=== PATIENT | female | born 1970 | race Caucasian/White ===

== ENCOUNTER 2017-09-28 13:06 | Emergency (ER) | END 2017-09-28 15:49 | disposition home or self-care (01) ==

== ENCOUNTER 2018-11-27 07:36 | Emergency (ER) | payer SELFPAY ==
[~2018-11-27] VITALS: Ht 157.5 cm; Wt 91.8 kg
[~2018-11-27 07:36] MED LIST: FLUT9.9S NASAL; PRED20TA PO
[2018-11-27 07:37] VITALS: Ht 157.5 cm; Wt 91.8 kg
[2018-11-27] MEDS ORDERED: FAMOTIDINE 20 MG INJ IV STA (08:14)
[2018-11-27] MEDS ORDERED: LIDOCAINE/MYLANTA 40 ML BTL PO STA (08:14)
[2018-11-27] MEDS ORDERED: SOD CHLORIDE 0.9% 500 ML IV STA (08:14)
[2018-11-27] MEDS ORDERED: ONDANSETRON 4 MG INJ IV STA (08:14)
[2018-11-27] MEDS ORDERED: DICYCLOMINE 20 MG INJ IM ONE (08:30)
[2018-11-27] MEDS ORDERED: LEVO200T45 PO (09:36)
[2018-11-27] MEDS ORDERED: ASPI81TA52 PO (09:36)
[2018-11-27] MEDS ORDERED: FER325 PO (09:37)
[2018-11-27 10:01] VITALS: BP 145/82; PULSE 66; RESP 17
[2018-11-27] MEDS ORDERED: DICY10CA40 PO (10:13)
--- NOTE | 2018-11-27 10:18 | ERD ---
ER Documentation Chief Complaint Chief Complaint generalized abdominal pain and nausea since 1 am today HPI This is a very pleasant 48-year-old female who presents to the emergency room with less than 12 hours of cramping epigastric abdominal discomfort. Patient describes cramping intermittent abdominal discomfort. Nonradiating. No fevers or chills. Mild nausea but no vomiting. She denies any diarrhea or significant constipation. No fevers or chills chest pain or shortness of breath or cough. ROS All systems reviewed and are negative except as per history of present illness. Medications Home Meds Active Scripts Dicyclomine HCl (Dicyclomine HCl) 10 Mg Capsule, 10 MG PO TID PRN for ABDOMINAL CRAMPING, #20 CAP Prov:TIFFANIE GOLDMAN MD 11/27/18 Reported Medications Ferrous Sulfate* (Ferrous Sulfate*) 325 Mg Tabec, 325 MG PO DAILY, TAB 11/27/18 Aspirin (Low Dose Aspirin) 81 Mg Tablet.dr, 81 MG PO DAILY, #30 TAB 11/27/18 Levothyroxine Sodium* (Levoxyl*) 200 Mcg Tablet, 200 MCG PO BEFORE BREAKFAST, # 30 TAB 11/27/18 Discontinued Scripts Fluticasone Propionate (Flonase Allergy Relief) 9.9 Ml [place].susp, 1 SPRAY NASAL BID, #1 BOTTLE TO EACH NOSTRIL Prov:JENNIFER NELSON MD 09/28/17 Prednisone* (Prednisone*) 20 Mg Tab, 20 MG PO DAILY for 5 Days, TAB Prov:JENNIFER NELSON MD 09/28/17 Allergies Allergies: Coded Allergies: Sulfa (Sulfonamide Antibiotics) (Verified Allergy, Unknown, 11/27/18) PMhx/Soc History of Surgery: No Anesthesia Reaction: No Hx Neurological Disorder: No Hx Respiratory Disorders: No Hx Cardiac Disorders: No Hx Psychiatric Problems: No Hx Miscellaneous Medical Probl: Yes (Lupus) Hx Alcohol Use: No Hx Substance Use: No Hx Tobacco Use: No Smoking Status: Never smoker FmHx Family History: No diabetes Physical Exam Vitals Vital Signs Date Temp Pulse Resp B/P (MAP) Pulse Ox O2 O2 Flow FiO2 Time Delivery Rate 11/27/18 97.9 66 17 145/82 100 Room Air 10:01 (103) 11/27/18 97.0 102 19 161/96 97 07:37 (117) Physical Exam General: Well developed, well nourished, no acute distress Head: Normocephalic, atraumatic. Eyes: Pupils equally reactive, EOM intact ENT: Moist mucous membranes Neck: Supple, no lymphadenopathy Respiratory: Lungs clear bilaterally, no distress Cardiovascular: RRR, no murmurs, rubs, or gallops Abdominal: Soft, very mild nonspecific epigastric abdominal tenderness without rebound or guarding, negative Jones sign, no tenderness to McBurney's point. : Deferred MSK: No edema, no unilateral swelling, 5/5 strength Neurologic: Alert and oriented, moving all extremities, normal speech, no focal weakness, no cerebellar signs Skin: No rash Psych: Normal mood Result Diagram: 11/27/18 0849 11/27/18 0849 Results 24 hrs Laboratory Tests Test 11/27/18 08:27 11/27/18 08:49 Serum HCG, Qualitative NEGATIVE White Blood Count 11.7 10^3/ul Red Blood Count 4.72 10^6/ul Hemoglobin 13.8 g/dl Hematocrit 40.0 % Mean Corpuscular Volume 84.7 fl Mean Corpuscular Hemoglobin 29.2 pg Mean Corpuscular Hemoglobin Concent 34.5 g/dl Red Cell Distribution Width 12.0 % Platelet Count 377 10^3/UL Mean Platelet Volume 9.6 fl Immature Granulocytes % 0.300 % Neutrophils % 82.5 % Lymphocytes % 11.0 % Monocytes % 4.4 % Eosinophils % 1.4 % Basophils % 0.4 % Nucleated Red Blood Cells % 0.0 /100WBC Immature Granulocytes # 0.040 10^3/ul Neutrophils # 9.6 10^3/ul Lymphocytes # 1.3 10^3/ul Monocytes # 0.5 10^3/ul Eosinophils # 0.2 10^3/ul Basophils # 0.1 10^3/ul Nucleated Red Blood Cells # 0.0 10^3/ul Sodium Level 141 mmol/L Potassium Level 3.8 mmol/L Chloride Level 106 mmol/L Carbon Dioxide Level 22 mmol/L Anion Gap 13 Blood Urea Nitrogen 15 mg/dl Creatinine 0.53 mg/dl Est Glomerular Filtrat Rate mL/min > 60 mL/min Glucose Level 113 mg/dl Calcium Level 10.1 mg/dl Total Bilirubin 0.5 mg/dl Direct Bilirubin 0.00 mg/dl Indirect Bilirubin 0.5 mg/dl Aspartate Amino Transf (AST/SGOT) 29 IU/L Alanine Aminotransferase (ALT/SGPT) 17 IU/L Alkaline Phosphatase 98 IU/L Troponin I < 0.012 ng/ml Total Protein 8.2 g/dl Albumin 4.6 g/dl Globulin 3.60 g/dl Albumin/Globulin Ratio 1.27 Lipase 68 U/L Current Medications Medications Dose Sig/Roderick Start Time Status Last (Trade) Ordered Route PRN Stop Time Admin Dose Reason Admin Sodium 500 ml @ Q1H STAT 11/27/18 DC 11/27/18 Chloride 500 mls/hr IV 08:14 11/27/18 08:45 09:13 Ondansetron 4 mg ONCE STAT 11/27/18 DC 11/27/18 HCl (Zofran IV 08:14 11/27/18 08:39 Inj) 08:16 Famotidine 20 mg ONCE STAT 11/27/18 DC 11/27/18 (Pepcid Iv) IV 08:14 11/27/18 08:39 08:16 40 ml ONCE STAT 11/27/18 DC 11/27/18 Miscellaneous PO 08:14 11/27/18 08:39 Medication 08:16 (Gi Cocktail (2)) Dicyclomine 10 mg ONCE ONCE 11/27/18 DC 11/27/18 HCl IM 08:30 11/27/18 08:40 (Bentyl) 08:31 Procedures/MDM EKG, MONITORS, & DIAGNOSTIC IMAGING: Gallbladder ultrasound, no acute process per radiologist read EKG: I reviewed and interpreted a 12-lead EKG. Rhythm: Normal sinus rhythm ST Changes: No contiguous ST segment elevations T waves: No contiguous T wave inversions Impression: No evidence of acute cardiac ischemia LAB INTERPRETATION: I reviewed the laboratory testing and it shows no evidence of acute process MEDICAL DECISION MAKING: The patient presents with nonspecific epigastric abdominal cramping. Very low pretest probability for cardiac etiology given no reproducible symptoms and better alternative diagnosis. EKG and troponin are negative. Patient has no m igratory pain suggestive of appendicitis or vascular process. Her abdominal exam is mostly benign. I do not believe CT imaging of the abdomen pelvis is necessary. Ultrasound of the gallbladder and liver function testing would be reasonable. ER COURSE: * Patient was given nonnarcotic pain medication, antispasmodic and GI cocktail. Improved symptomatology. * Laboratory testing and diagnostic imaging is otherwise unrevealing. I discussed the case with her primary care physician who states that he can see her tomorrow. * This is possibly related to viral process versus bowel spasm versus dyspepsia or gastritis. Further outpatient testing may be warranted if symptoms persist. CONSULTATION: None DISPOSITION PLAN: The patient does not have an identifiable emergent medical condition that war rants inpatient hospitalization at this time. The patient is deemed safe for discharge with outpatient follow-up. We discussed follow up with the patient's primary care doctor within 24 to 48 hours as needed. We also discussed return to the emergency room for worsening symptoms or worsening condition. Outpatient referral: None required Discharge Medications: Bentyl Departure Diagnosis: Primary Impression: Epigastric abdominal pain Condition: Stable Patient Instructions: Epigastric Pain (Uncertain Cause) Additional Instructions: Return for fever, pain migratory to the right lower quadrant Call your primary care doctor TOMORROW for an appointment during the next 1 WEEK.Tell the unit secretary that you were referred from this facility.See the doctor sooner or return here if your condition worsens before your appointment time. TIFFANIE GOLDMAN MD Nov 27, 2018 10:18
== END 2018-11-27 10:47 | disposition home or self-care (01) ==
LOC: E/R 07:36
DX: R10.13 Epigastric pain (principal); R11.0 Nausea; Z79.82 Long term (current) use of aspirin
CPT/HCPCS: 76705; 80053; 83690; 84484; 84703; 85025; 93005; 96372; 96374; 96375; 99285; J0500; J2405; J7040